=== PATIENT | male | born 1955 | race Caucasian/White ===

== ENCOUNTER → 2024-06-25 | Outpatient (CLI) | payer OTHER ==
--- NOTE | 2024-06-25 12:53 | HMCIMG ---
UPPER GI TRACT, WO KUB REASON: Heartburn/ Dysphagia, unspecified. COMPARISON: None TECHNIQUE: Upper GI series study was performed. FINDINGS: There is no obstruction to the antegrade passage of barium from mouth through jejunum. Retained food material is seen in the stomach. Normal esophageal stripping wave is seen. There is no evidence of hiatal hernia. There is gastroesophageal reflux into the level of the mid thoracic esophagus. Stomach is distended. No ulceration or mass lesion seen. Duodenal bulb and duodenal sweep are unremarkable. IMPRESSION: Acid distention with retained food material. Gastroesophageal reflux to level of the thoracic esophagus.
== END | disposition home or self-care (01) ==
LOC: RAH 08:58
PROVIDERS: ATTEND Internal Medicine Gastroenterology
DX: K21.9 Gastro-esophageal reflux disease without esophagitis (principal); K31.89 Other diseases of stomach and duodenum; R12 Heartburn; R13.10 Dysphagia, unspecified
CPT/HCPCS: 74240

== ENCOUNTER → 2024-11-09 | Outpatient (CLI) | payer OTHER ==
--- NOTE | 2024-11-10 21:41 | HMCIMG ---
Gastric Emptying Scan. EXAM: Nuclear Medicine Gastric Emptying Scan. INDICATION: Suspected gastroparesis. REFERENCE EXAMINATION: None TECHNIQUE: 2.1 mCi of Tc99m sulfur colloid with eggs. FINDINGS: Transit of radiopharmaceutical is seen from the stomach into the small bowel. 50% gastric emptying achieved in 51 minutes. The percent gastric retention of the stomach at approximately 1 hour was 43% (normal 30-90%). IMPRESSION: Scintigraphic findings suggest normal gastric emptying /[place]
== END | disposition home or self-care (01) ==
LOC: RAH 07:07
PROVIDERS: ATTEND Internal Medicine Gastroenterology
DX: R93.3 Abnormal findings on diagnostic imaging of other parts of digestive tract (principal)
CPT/HCPCS: 78264; A9541